=== PATIENT | female | born 1985 | race Caucasian/White ===

== ENCOUNTER 2019-10-01 14:26 | Emergency (ER) | payer OTHER ==
[~2019-10-01] VITALS: Ht 170.2 cm; Wt 89.8 kg
[2019-10-01] MEDS ORDERED: IV NORMAL SALINE 1,000ML 1,000 ML IV ONE (14:45)
--- NOTE | 2019-10-01 14:53 | PHYS DOC ---
Past History Past Medical History: Ectopic Past Surgical History: Cholecystectomy Alcohol Use: None General Adult EDM: Chief Complaint: ABDOMINAL PAIN IN HPI: HPI: 34-year-old female presents with vaginal spotting and lower abdominal pain. The patient believes she is 11 weeks based on her periods. She has not seen an OB yet. She started to have pink spotting yesterday which has increased today and she has cramping today as well. Patient is concerned because she has a history of ectopic in the past. Her pain is a cramping, shooting pain of moderate intensity that starts down around her vagina and radiates upward. She denies fever or chills. Review of Systems: Review of Systems: Constitutional: Denies fever or chills Eyes: Denies change in visual acuity HENT: Denies nasal congestion or sore throat Respiratory: Denies cough or shortness of breath Cardiovascular: Denies chest pain or edema GI: Lower abdominal pain, nausea. Denies vomiting, bloody stools or diarrhea : Vaginal bleeding Musculoskeletal: Denies back pain or joint pain Integument: Denies rash Neurologic: Denies headache, focal weakness or sensory changes Endocrine: Denies polyuria or polydipsia Lymphatic: Denies swollen glands Psychiatric: Denies depression or anxiety Heart Score: Risk Factors: Risk Factors: DM, Current or recent (<one month) smoker, HTN, HLP, family history of CAD, obesity. Risk Scores: Score 0 - 3: 2.5% MACE over next 6 weeks - Discharge Home Score 4 - 6: 20.3% MACE over next 6 weeks - Admit for Clinical Observation Score 7 - 10: 72.7% MACE over next 6 weeks - Early Invasive Strategies Current Medications: Current Meds: Current Medications Medications (Trade) Dose Ordered Sig/Gaudencio Start Time Stop Time Status Last Admin Dose Admin Sodium Chloride 1,000 ml @ 1,000 mls/hr 1X ONCE 10/01/19 14:45 10/01/19 15:44 UNV Allergies: Allergies: Allergies Coded Allergies Type Severity Reaction Last Updated Verified Penicillins Allergy Unknown 10/01/19 Yes fentanyl Allergy Unknown 10/01/19 Yes ketorolac Allergy Unknown 10/01/19 Yes morphine Allergy Unknown 10/01/19 Yes Physical Exam: PE: Constitutional: Well developed, well nourished, no acute distress, non-toxic appearance. [] HENT: Normocephalic, atraumatic, bilateral external ears normal, oropharynx moist, no oral exudates, nose normal. [] Eyes: PERRLA, EOMI, conjunctiva normal, no discharge. [] Neck: Normal range of motion, no tenderness, supple, no stridor. [] Cardiovascular: Heart rate regular rhythm, no murmur [] Lungs & Thorax: Bilateral breath sounds clear to auscultation [] Abdomen: Bowel sounds normal, soft, no tenderness, no masses, no pulsatile masses. [] Skin: Warm, dry, no erythema, no rash. [] Back: No tenderness, no CVA tenderness. [] Extremities: No tenderness, no cyanosis, no clubbing, ROM intact, no edema. [] Neurologic: Alert and oriented X 3, normal motor function, normal sensory function, no focal deficits noted. [] Psychologic: Affect normal, judgement normal, mood concerned. [] Current Patient Data: Vital Signs: Vital Signs Date Time Temp Pulse Resp B/P (MAP) Pulse Ox O2 Delivery O2 Flow Rate FiO2 10/01/19 14:28 98.2 80 18 153/90 (111) 98 Room Air EKG: EKG: [] Radiology/Procedures: Radiology/Procedures: [] Impressions: OB <14 WKS W/TV History: Bleeding, cramping, positive test Comparison: None. Findings: Multiple transabdominal sonographic images of pelvis are submitted. There is a single intrauterine gestational sac. Uterus measured 10.6 x 6.3 cm. Transvaginal ultrasound: Multiple transvaginal sonographic images of the pelvis are submitted. Closed cervix measured 3.4 cm in length. There is single intrauterine gestational sac with identifiable pole. However there is no demonstrable cardiac activity on color Doppler imaging or M-mode analysis. Uterus measured about 7.7 cm transverse. Mean sac dimension 4.15 cm corresponds with 9 weeks 5 days. [place]-rump length measurement of 2.52 cm corresponds with 9 weeks 2 days. Adjusted ultrasound age is 9 weeks 4 days with estimated delivery date of 05/01/2020. LMP age is 14 weeks 4 days with estimated delivery date of July 25, 2020. Amniotic fluid volume is within normal limits. Placenta and anatomy are not well visualized at this age of . Left ovary measured 2.8 x 1.9 x 2.1 cm with normal color flow. Right ovary measured 2.5 x 2.6 x 3.7 cm, normal color flow. Impression: 1. There is a single intrauterine fetus although no demonstrable cardiac activity on M-mode analysis or color Doppler imaging, evidence of demise. Critical results were discussed with nurse Pettit in the emergency department at 10/01/2019 3:45 PM. Electronically signed by: Dejan Guzman MD (10/01/2019 3:45 PM) [facility] DICTATED AND SIGNED BY: DEJAN GUZMAN MD DATE: 10/01/19 1545 CC: MAJO KAISER DO; PCP,NO ~ Course & Med Decision Making: Course & Med Decision Making Pertinent Labs and Imaging studies reviewed. (See chart for details) The patient's labs are unremarkable. Her urinalysis is negative for infection. Her ultrasound does show a of about 9 weeks. There is no cardiac activity. There is other evidence of demise. See official report for more details. This appears to be a spontaneous miscarriage. I have advised the patient follow-up with OB immediately. She does not currently have an OB. I have given her contact information for 1 associated with this facility. [] Zulema Disclaimer: Zulema Disclaimer: This electronic medical record was generated, in whole or in part, using a voice recognition dictation system. Departure Departure: Impression: Primary Impression: Spontaneous miscarriage Disposition: HOME/RESIDENCE PRIOR TO ADM Condition: STABLE Referrals: PCP,NO (PCP) Patient Instructions: Miscarriage, [id number] Additional Instructions: Please follow-up with [facility] as soon as possible. You can call Dr. Mancini at [phone] for follow-up. Scripts Hydrocodone Bit/Acetaminophen (NORCO 5-325 TABLET) 1 Each Tablet 1 TAB PO PRN Q6HRS PRN for PAIN, #14 TAB 0 Refills Prov: MAJO KAISER DO 10/01/19 Justification of Admission: Justification of Admission: Justification of Admission Dx: N/A MAJO KAISER DO Oct 01, 2019 14:53
[2019-10-01 15:14] LABS: BASO # 0.1 x10^3/uL (0.0-0.2); BASO % 1 % (0-3); EOS # 0.2 x10^3/uL (0.0-0.7); EOS % 2 % (0-3); HEMATOCRIT 38.3 % (36.0-47.0); HEMOGLOBIN 13.1 g/dL (12.0-15.5); LYMPH % 28 % (24-48); MEAN CORPUSCULAR HEMOGLOBIN 33 pg (25-35); MEAN CORPUSCULAR HGB CONC 34 g/dL (31-37); MEAN CORPUSCULAR VOLUME 96 fL (79-100); MONO # 0.5 x10^3/uL (0.0-1.1); MONO % 5 % (0-9); NEUT # 6.7 x10^3uL (1.8-7.7); NEUT % 64 % (31-73); PLATELET COUNT 392 x10^3/uL (140-400); RED BLOOD COUNT 3.99 x10^6/uL (3.50-5.40); RED CELL DISTRIBUTION WIDTH 13.9 % (11.5-14.5); WHITE BLOOD COUNT 10.5 x10^3/uL (4.0-11.0)
[2019-10-01 15:26] LABS: CALCIUM 9.4 mg/dL (8.5-10.1); CREATININE 0.8 mg/dL (0.6-1.0); GFR 81.2; POTASSIUM 3.5 mmol/L (3.5-5.1)
[2019-10-01 15:31] LABS: ALBUMIN 4.1 g/dL (3.4-5.0); ALBUMIN/GLOBULIN RATIO 1.1 (1.0-1.7); TOTAL BILIRUBIN 0.5 mg/dL (0.2-1.0); TOTAL PROTEIN 7.7 g/dL (6.4-8.2)
[2019-10-01 15:47] LABS: CLARITY,URINE CLEAR; COLOR,URINE YELLOW
[2019-10-01 15:48] LABS: BACTERIA,URINE 0 /HPF (0-FEW); BILIRUBIN,URINE NEG (NEG); GLUCOSE,URINE NEG (NEG); NITRITE,URINE NEG (NEG); RBC,URINE RARE /HPF (0-2); SQUAMOUS EPITHELIAL CELL,UR OCC /LPF; UROBILINOGEN,URINE 0.2 mg/dL (0.2 mg/dL); WBC,URINE RARE /HPF (0-4)
--- NOTE | 2019-10-01 15:48 | RAD ---
OB <14 WKS W/TV History: Bleeding, cramping, positive test Comparison: None. Findings: Multiple transabdominal sonographic images of pelvis are submitted. There is a single intrauterine gestational sac. Uterus measured 10.6 x 6.3 cm. Transvaginal ultrasound: Multiple transvaginal sonographic images of the pelvis are submitted. Closed cervix measured 3.4 cm in length. There is single intrauterine gestational sac with identifiable pole. However there is no demonstrable cardiac activity on color Doppler imaging or M-mode analysis. Uterus measured about 7.7 cm transverse. Mean sac dimension 4.15 cm corresponds with 9 weeks 5 days. [place]-rump length measurement of 2.52 cm corresponds with 9 weeks 2 days. Adjusted ultrasound age is 9 weeks 4 days with estimated delivery date of 05/01/2020. LMP age is 14 weeks 4 days with estimated delivery date of July 25, 2020. Amniotic fluid volume is within normal limits. Placenta and anatomy are not well visualized at this age of . Left ovary measured 2.8 x 1.9 x 2.1 cm with normal color flow. Right ovary measured 2.5 x 2.6 x 3.7 cm, normal color flow. Impression: 1. There is a single intrauterine fetus although no demonstrable cardiac activity on M-mode analysis or color Doppler imaging, evidence of demise. Critical results were discussed with nurse Pettit in the emergency department at 10/01/2019 3:45 PM. Electronically signed by: Musa Walker MD (10/01/2019 3:45 PM) [facility]
[2019-10-01] MEDS ORDERED: HYDR-3165 PO (16:29)
[2019-10-01 16:30] VITALS: BP 139/80
== END 2019-10-01 16:35 | disposition home or self-care (01) ==
LOC: ER 14:26
DX: O03.9 Complete or unspecified spontaneous abortion without complication (principal); Z90.49 Acquired absence of other specified parts of digestive tract; Z88.0 Allergy status to penicillin; Z88.5 Allergy status to narcotic agent; Z88.8 Allergy status to other drugs, medicaments and biological substances
CPT/HCPCS: 36415; 76801; 76817; 80053; 81001; 84702; 85025; 96360; 99284; J7030

== ENCOUNTER 2020-03-17 09:36 | Emergency (ER) | payer OTHER ==
[~2020-03-17] VITALS: Ht 170.2 cm; Wt 94.2 kg
[2020-03-17 09:36] VITALS: BP 151/77
[~2020-03-17 09:36] MED LIST: HYDR-3165 PO
--- NOTE | 2020-03-17 09:42 | PHYS DOC ---
Past History Past Medical History: Ectopic Past Surgical History: Cholecystectomy Alcohol Use: None General Adult EDM: Chief Complaint: Vaginal bleeding HPI: HPI: Patient is a 34-year-old female who presented to ER due to vaginal bleeding and pelvic pain since yesterday. Patient says she is about 13 weeks , started having this pelvic cramping and vaginal bleeding yesterday, the bleeding become more severe this morning. Patient denies any fever, no nausea or vomiting. Patient has been 4 times, had 1 live baby, had 2 previous miscarry. Her last miscarry was in September of last year. Patient's blood type is O+. Review of Systems: Review of Systems: Constitutional: Denies fever or chills Eyes: Denies change in visual acuity HENT: Denies nasal congestion or sore throat Respiratory: Denies cough or shortness of breath Cardiovascular: Denies chest pain or edema GI: Denies abdominal pain, nausea, vomiting, bloody stools or diarrhea : Positive for vaginal bleeding and pelvic pain. Musculoskeletal: Denies back pain or joint pain Integument: Denies rash Neurologic: Denies headache, focal weakness or sensory changes Endocrine: Denies polyuria or polydipsia Lymphatic: Denies swollen glands Psychiatric: Denies depression or anxiety Allergies: Allergies: Allergies Coded Allergies Type Severity Reaction Last Updated Verified Penicillins Allergy Unknown 10/01/19 Yes fentanyl Allergy Unknown 10/01/19 Yes ketorolac Allergy Unknown 10/01/19 Yes morphine Allergy Unknown 10/01/19 Yes Physical Exam: PE: Constitutional: Well developed, well nourished, no acute distress, non-toxic appearance. [] HENT: Normocephalic, atraumatic, bilateral external ears normal, oropharynx moist, no oral exudates, nose normal. [] Eyes: PERRLA, EOMI, conjunctiva normal, no discharge. [] Neck: Normal range of motion, no tenderness, supple, no stridor. [] Cardiovascular:Heart rate regular rhythm, no murmur [] Lungs & Thorax: Bilateral breath sounds clear to auscultation [] Abdomen: Bowel sounds normal, soft, no tenderness, no masses, no pulsatile masses. PELVIC EXAM: NO ACTIVE BLEEDING, CERVIX IS CLOSED Skin: Warm, dry, no erythema, no rash. [] Back: No tenderness, no CVA tenderness. [] Extremities: No tenderness, no cyanosis, no clubbing, ROM intact, no edema. [] Neurologic: Alert and oriented X 3, normal motor function, normal sensory function, no focal deficits noted. [] Psychologic: Affect normal, judgement normal, mood normal. [] Current Patient Data: Labs: Laboratory Tests Test 03/17/20 09:57 White Blood Count 10.5 x10^3/uL Red Blood Count 3.71 x10^6/uL Hemoglobin 12.1 g/dL Hematocrit 35.7 % Mean Corpuscular Volume 96 fL Mean Corpuscular Hemoglobin 33 pg Mean Corpuscular Hemoglobin Concent 34 g/dL Red Cell Distribution Width 13.8 % Platelet Count 328 x10^3/uL Neutrophils (%) (Auto) 70 % Lymphocytes (%) (Auto) 21 % Monocytes (%) (Auto) 6 % Eosinophils (%) (Auto) 2 % Basophils (%) (Auto) 1 % Neutrophils # (Auto) 7.4 x10^3uL Lymphocytes # (Auto) 2.2 x10^3/uL Monocytes # (Auto) 0.6 x10^3/uL Eosinophils # (Auto) 0.2 x10^3/uL Basophils # (Auto) 0.1 x10^3/uL Maternal Serum HCG Beta Subunit 51508 mIU/mL Sodium Level 138 mmol/L Potassium Level 3.6 mmol/L Chloride Level 105 mmol/L Carbon Dioxide Level 20 mmol/L Anion Gap 13 Blood Urea Nitrogen 6 mg/dL Creatinine 0.5 mg/dL Estimated GFR (Cockcroft-Gault) 139.6 BUN/Creatinine Ratio 12 Glucose Level 104 mg/dL Calcium Level 8.6 mg/dL Total Bilirubin 0.2 mg/dL Aspartate Amino Transf (AST/SGOT) 14 U/L Alanine Aminotransferase (ALT/SGPT) 23 U/L Alkaline Phosphatase 46 U/L Total Protein 6.8 g/dL Albumin 3.3 g/dL Albumin/Globulin Ratio 0.9 EKG: EKG: [] Radiology/Procedures: Radiology/Procedures: [][address] [address] IMAGING REPORT Signed PATIENT: JENNIFER MONTERROSO MACCOUNT: [id number] : 1985 LOCATION: ER AGE: 34 SEX: F EXAM STATUS: REG ER ORD. PHYSICIAN: KOURTNEY MONK DO REASON: 13 weeks , vaginal bleeding and pelvic pain since yesterd PROCEDURE: OB LIMITED EXAMINATION: US OB LIMITED, 03/17/2020 10:35 AM CLINICAL INDICATION: 13 weeks , vaginal bleeding and pelvic pain since yesterday TECHNIQUE: Grayscale, color and spectral Doppler ultrasound images of the pelvis per OB Limited protocol. COMPARISON: None FINDINGS: There is a single living intrauterine gestation. heart rate is 132 bpm. Placenta is anterior. No retroplacental hemorrhage noted. Complete placenta previa noted. The cervix measures 3.25 cm. There is a hypoechoic round circumscribed structure in the cervix measuring 1.1 cm, possibly a hemorrhagic cyst. biometry: Biparietal diameter: 3.15 cm, 15 weeks 6 days Head circumference: 11.99 cm, 16 weeks 0 days Abdominal circumference: 10.51 cm, 16 weeks 3 days Femur length: 2.01 cm, 16 weeks 0 days HC/AC ratio: 1.14 Estimated gestational age by ultrasound: 16 weeks 1 day. Estimated weight: 148 g. Sonographic EDC: 08/31/2020 Left ovary measures 3.3 x 2.7 x 2.1 cm. The right ovary measures 3.2 x 2.9 x 3.9 cm. There is normal blood flow to both ovaries. No free fluid or adnexal mass. IMPRESSION: 1. Single living intrauterine with gestational age by ultrasound 16 weeks 1 day. heart rate 132 bpm. 2. Complete placenta previa. Recommend attention on follow-up ultrasound. 3. 1.1 cm hypoechoic cystic structure in the cervix, possibly hemorrhagic cyst. Recommend attention on follow-up ultrasound. Electronically signed by: Adeola Ponce MD (03/17/2020 11:52 AM) [id number] DICTATED AND SIGNED BY: ADEOLA PONCE MD DATE: 03/17/20 1123 CC: PCP,NO; KUORTNEY MONK DO ~MTH0 0 Heart Score: Risk Factors: Risk Factors: DM, Current or recent (<one month) smoker, HTN, HLP, family history of CAD, obesity. Risk Scores: Score 0 - 3: 2.5% MACE over next 6 weeks - Discharge Home Score 4 - 6: 20.3% MACE over next 6 weeks - Admit for Clinical Observation Score 7 - 10: 72.7% MACE over next 6 weeks - Early Invasive Strategies Course & Med Decision Making: Course & Med Decision Making Pertinent Labs and Imaging studies reviewed. (See chart for details) Patient has Complete Placenta Previa, no active bleeding at this time, Discussed with Dr. Dann Mancini, recommended pelvic rest, follow up in clinic next week. Dragon Disclaimer: Dragon Disclaimer: This electronic medical record was generated, in whole or in part, using a voice recognition dictation system. Departure Departure: Impression: Primary Impression: Placenta previa antepartum in second trimester Additional Impression: Threatened in second trimester Disposition: 01 DC HOME SELF CARE/HOMELESS Condition: STABLE Referrals: PCP,NO (PCP) Patient Instructions: - Placenta Previa, Threatened Miscarriage Additional Instructions: PELVIC REST FOLLOW UP WITH YOUR [facility] TE[facility] DOCTOR, DR. DANN MANCINI NEXT WEEK. KOURTNEY MONK DO Mar 17, 2020 09:42
[2020-03-17 10:10] LABS: BASO # 0.1 x10^3/uL (0.0-0.2); BASO % 1 % (0-3); EOS # 0.2 x10^3/uL (0.0-0.7); EOS % 2 % (0-3); HEMATOCRIT 35.7 % (36.0-47.0); HEMOGLOBIN 12.1 g/dL (12.0-15.5); LYMPH # 2.2 x10^3/uL (1.0-4.8); LYMPH % 21 % (24-48); MEAN CORPUSCULAR HEMOGLOBIN 33 pg (25-35); MEAN CORPUSCULAR HGB CONC 34 g/dL (31-37); MEAN CORPUSCULAR VOLUME 96 fL (79-100); MONO # 0.6 x10^3/uL (0.0-1.1); MONO % 6 % (0-9); NEUT # 7.4 x10^3uL (1.8-7.7); NEUT % 70 % (31-73); PLATELET COUNT 328 x10^3/uL (140-400); RED BLOOD COUNT 3.71 x10^6/uL (3.50-5.40); RED CELL DISTRIBUTION WIDTH 13.8 % (11.5-14.5); WHITE BLOOD COUNT 10.5 x10^3/uL (4.0-11.0)
[2020-03-17 10:20] LABS: CALCIUM 8.6 mg/dL (8.5-10.1); CREATININE 0.5 mg/dL (0.6-1.0); GFR 139.6; POTASSIUM 3.6 mmol/L (3.5-5.1)
[2020-03-17 10:26] LABS: ALBUMIN 3.3 g/dL (3.4-5.0); ALBUMIN/GLOBULIN RATIO 0.9 (1.0-1.7); TOTAL BILIRUBIN 0.2 mg/dL (0.2-1.0); TOTAL PROTEIN 6.8 g/dL (6.4-8.2)
--- NOTE | 2020-03-17 11:55 | RAD ---
EXAMINATION: US OB LIMITED, 03/17/2020 10:35 AM CLINICAL INDICATION: 13 weeks , vaginal bleeding and pelvic pain since yesterday TECHNIQUE: Grayscale, color and spectral Doppler ultrasound images of the pelvis per OB Limited soila col. COMPARISON: None FINDINGS: There is a single living intrauterine gestation. heart rate is 132 bpm. Placenta is a nterior. No retroplacental hemorrhage noted. Complete placenta previa noted. The cervix measures 3.25 cm. There is a hypoechoic round circumscribed structure in the cervix measuring 1.1 cm, possibly a h emorrhagic cyst. biometry: Biparietal diameter: 3.15 cm, 15 weeks 6 days Head circumference: 11.99 cm, 16 weeks 0 days Abdominal circumference: 10.51 cm, 16 weeks 3 days Femur length: 2.01 cm, 16 weeks 0 days HC/AC ratio: 1.14 Estimated gestational age by ultrasound: 16 weeks 1 day. Estimated weight: 148 g. Sonographic E DC: 08/31/2020 Left ovary measures 3.3 x 2.7 x 2.1 cm. The right ovary measures 3.2 x 2.9 x 3.9 cm. There is normal blood flow to both ovaries. No free fluid or adnexal mass. IMPRESSION: 1. Single living intrauterine with gestational age by ultrasound 16 weeks 1 day. hear t rate 132 bpm. 2. Complete placenta previa. Recommend attention on follow-up ultrasound. 3. 1.1 cm hypoechoic cystic structure in the cervix, possibly hemorrhagic cyst. Recommend attention o n follow-up ultrasound. Electronically signed by: Adeola Ponce MD (03/17/2020 11:52 AM) [id number]
== END 2020-03-17 13:33 | disposition home or self-care (01) ==
LOC: ER 09:36
DX: O44.02 Complete placenta previa NOS or without hemorrhage, second trimester (principal); Z3A.16 16 weeks gestation of pregnancy; O20.0 Threatened abortion; Z88.0 Allergy status to penicillin; Z88.5 Allergy status to narcotic agent; Z88.8 Allergy status to other drugs, medicaments and biological substances
CPT/HCPCS: 36415; 76815; 80053; 81025; 84702; 85025; 99284

== ENCOUNTER → 2020-06-02 | Outpatient (CLI) | payer OTHER ==
--- NOTE | 2020-06-03 09:24 | RAD ---
Study: US OB >14 WEEKS Clinical Indication: Follow-up placental previa, anatomy scan. Comparison: ultrasound 03/17/2020. Technique: Multiple grayscale images, color Doppler, and M-mode images of the uterus are obtained. Findings: Single intrauterine gestation in breech presentation. The placenta is anterior in location without ev idence of placenta previa. The amount of amniotic fluid appears appropriate. Amniotic fluid index is 16.4 cm. Cervical length is long 3.2 cm. Biometrical data: BPD = 6.66 cm for 26 weeks 6 days. HC = 24.85 cm for 27 weeks 0 days. AC = 24.17 cm for 28 weeks 3 days. FL = 5.25 cm for 28 weeks 0 days. CI ratio = 82.4. HC/AC ratio = 1.03. (Expected range 1.04-1.22) FL/HC ratio = 21.1. FL/AC ratio = 21.7. Overall, the estimated sonographic gestational age is 27 weeks 4 days for an estimated date of delive ry of 08/28/2020. The clinical estimated date of delivery is 09/06/2020. Estimated weight is 1162 grams. A 4 chamber heart is identified with positive cardiac activity. The estimated heart rate is 138 beats per minute. Bilateral upper and lower extremities are identified. There is a three-vessel cord with cord insertion visualized. stomach and urinary bladder are identified. Both kidneys are seen. The spine is suboptimally visualized due to position. No spine or brain abnormalities rich ntified. No gross anatomic abnormalities are identified. Impression: 1. Single live intrauterine gestation with estimated sonographic gestational age of 27 weeks 4 days corresponding to an estimated delivery date of 08/28/2020. Clinically estimated delivery date of 021. weight estimate of 1162 grams which is at the 73rd percentile. 2. Head circumference to abdominal circumference ratio below the expected range at 1.03. 3. No placenta previa. Electronically signed by: Ovidio Donis MD (06/03/2020 9:21 AM) [facility]
== END ==
LOC: US 10:36
PROVIDERS: ATTEND Obstetrics & Gynecology
DX: O32.1XX0 Maternal care for breech presentation, not applicable or unspecified (principal); Z3A.27 27 weeks gestation of pregnancy
CPT/HCPCS: 76805

== ENCOUNTER 2020-12-01 19:13 | Emergency (ER) | payer OTHER ==
[~2020-12-01] VITALS: Ht 160 cm; Wt 93.8 kg
--- NOTE | 2020-12-01 20:10 | PHYS DOC ---
Past History Past Medical History: Asthma, Ectopic Past Surgical History: Cholecystectomy, Other Additional Past Surgical Histo: LEEP Additional Smoking Information: 2/3 of pack Alcohol Use: None General Adult EDM: Chief Complaint: BACK PAIN OR INJURY HPI: HPI: Patient is a 35-year-old female with a past medical history of asthma presenting for back pain over the past couple weeks that worsened over the past couple of days. She denies any trauma to the area. She reports this pain in the upper lumbar spine that wraps around her back. She describes it as somebody is punching her and it is worse whenever she tries to move. The only way she gets any relief is when she sits perfectly still. She took ibuprofen this morning at 6 AM with little relief. She reports some weakness in her legs after standing for a while but denies numbness/ tingling, fevers/chills, loss of bowel or bladder, history of malignancy or history of back surgery/injection. Review of Systems: Review of Systems: Constitutional: Denies fever or chills Eyes: Denies redness or eye pain HENT: Denies nasal congestion or sore throat Respiratory: Denies cough or shortness of breath Cardiovascular: Denies chest pain or palpitations GI: Denies abdominal pain, nausea, or vomiting : Denies dysuria or hematuria Musculoskeletal: Denies joint pain or injury Integument: Denies rash or skin lesions Neurologic: Denies headache, focal weakness or sensory changes Complete systems were reviewed and found to be within normal limits, except as documented in this note. Allergies: Allergies: Allergies Coded Allergies Type Severity Reaction Last Updated Verified Penicillins Allergy Unknown 10/01/19 Yes fentanyl Allergy Unknown 10/01/19 Yes ketorolac Allergy Unknown 10/01/19 Yes morphine Allergy Unknown 10/01/19 Yes Physical Exam: PE: Constitutional: Well developed, well nourished, non-toxic appearance HENT: Normocephalic, atraumatic Eyes: PERRL, EOMI, conjunctiva normal, no discharge Neck: Normal range of motion, no tenderness, supple Lungs & Thorax: No respiratory distress, equal chest rise and fall Abdomen: Soft, no tenderness Skin: Warm, dry, no erythema, no rash Back: Paraspinal tenderness to the upper lumbar spine Extremities: No tenderness, ROM intact, no edema, +2 dorsalis pedis pulses b/l Neurologic: Alert and oriented X 3, normal motor function, normal sensory function, no focal deficits noted Psychologic: Affect normal, judgment normal Current Patient Data: Vital Signs: Vital Signs Date Time Temp Pulse Resp B/P (MAP) Pulse Ox O2 Delivery O2 Flow Rate FiO2 12/01/20 19:43 97.9 89 16 139/80 (99) 97 Room Air Heart Score: C/O Chest Pain: No Course & Med Decision Making: Course & Med Decision Making Pertinent Labs and Imaging studies reviewed. (See chart for details) Patient is a 35-year-old female with past medical history of asthma presenting for lumbar paraspinal back pain that has worsened over the past couple days. No trauma to the area. Low risk for spinal infections, compression syndromes, or malignancy. Patient given muscle relaxer and steroid in the ED. Will give prescription for muscle relaxer and steroid, and also pain management referral. Dragon Disclaimer: Dragon Disclaimer: This electronic medical record was generated, in whole or in part, using a voice recognition dictation system. Departure Departure: Impression: Primary Impression: Back pain Qualified Codes: M54.50 - Low back pain, unspecified Disposition: HOME / SELF CARE / HOMELESS Condition: STABLE Referrals: PCP,MARIAELENA (PCP) Patient Instructions: Back Pain, Adult, [id number] Additional Instructions: ICE area of discomfort 20 min on then leave off next 20 mins. Repeat several times daily as needed for next few days. Take over the counter Tylenol and/or Ibuprofen in addition to prescribed pain medications. Follow up closely with Pain management: Dr. Renny Gillis. Call for an appointment. [id number] [facility], [address] [place] [address] Scripts Lidocaine (Lidocaine PATCH ) 1 Each Adh..patch 1 EACH TP DAILY for FOR LOCAL PAIN, #30 PATCH REMOVE AFTER 12 HOURS Prov: RANDY GURROLA DO 12/01/20 Orphenadrine Citrate (ORPHENADRINE CITRATE) 100 Mg Tablet.er 1 TAB PO BID PRN for MUSCLE PAIN, #14 TAB 0 Refills Prov: RANDY GURROLA DO 12/01/20 Prednisone (PREDNISONE) 20 Mg Tablet 2 TAB PO DAILY for Back pain, #8 TAB Start this prescription tomorrow, 12/02/20 Prov: RANDY GURROLA DO 12/01/20 RANDY GURROLA DO Dec 01, 2020 20:10
[2020-12-01] MEDS ORDERED: ORPHENADRINE CITRATE 60 MG/2 ML VIAL. IM ONE (20:15)
[2020-12-01] MEDS ORDERED: ORPH-16 PO (20:25)
[2020-12-01] MEDS ORDERED: LIDO700A21 TP (20:25)
[2020-12-01] MEDS ORDERED: PRED20TA PO (20:25)
[2020-12-01 20:35] VITALS: BP 117/71
== END 2020-12-01 20:40 | disposition home or self-care (01) ==
LOC: ER 19:13
DX: M54.59 Other low back pain (principal); R53.1 Weakness; J45.909 Unspecified asthma, uncomplicated; F17.200 Nicotine dependence, unspecified, uncomplicated; Z90.49 Acquired absence of other specified parts of digestive tract; Z88.0 Allergy status to penicillin; Z88.5 Allergy status to narcotic agent; Z88.8 Allergy status to other drugs, medicaments and biological substances
CPT/HCPCS: 96372; 99283; J2360